=== PATIENT | male | born 1985 | race Caucasian/White ===

== ENCOUNTER 2023-02-05 21:18 | Emergency (ER) | payer OTHER, SELFPAY ==
[2023-02-05 21:21] VITALS: BP 193/96; PULSE 106; RESP 22; TEMP 36.2; O2SAT 98
[2023-02-05 22:06] VITALS: RESP 17; O2SAT 98; BMI 34.0
[2023-02-05] MEDS: Ketorolac 60 MG/2 ML Vial IM (22:23)
--- NOTE | 2023-02-05 22:27 | EX.ED.DYSGE1 ---
HPI History of Present Illness Chief Complaint: Dental Informant: patient Narrative Narrative: Of [id number] male presenting to the emergency room with dental pain. Patient states that for the past several months he has had dental decay right second molar and right upper second molar. He states he has been trying to save money to go see the dentist but that is take that money to repair his car. He then informs me that he actually has dental insurance through his work but he cannot find his card and he does not know how to go about calling the dentist to see if he can see them. I did mention to the patient that he can go to his human resources and get the phone number for [employer] to get a replacement card he states that he just has not had the time. I did inform him that he can call dentist and see if they take [employer] and schedule appointment that way but he does work third shift and sleeps during the day and by the time he is awake most places are closed. PFSH PFSH Home Medications amoxicillin 500 mg tablet 500 mg PO TID #30 tabs 02/05/23 [Rx Last Taken Unknown] hydrocodone-acetaminophen 5-325mg 5mg-325mg 1 tab PO Q6H PRN PRN Pain 3 days #12 TABLETS 02/05/23 [Rx Last Taken Unknown] Allergy/AdvReac Type Severity Reaction Status Date / Time No Known Allergies Allergy Verified 02/05/23 21:21 Social History (Updated 02/05/23 @ 22:[address] Paramjit Rowland, DO) Smoking Status: Current every day smoker tobacco type: cigarettes substance use type: does not use ROS ROS ED Constitutional Constitutional ED: Denies chills or weight loss Eyes Eyes: Denies blurry vision, change in vision or diplopia ENT ENT ED: Reports other Details: Dental pain ; Denies ear pain, rhinorrhea or sore throat Cardiovascular Cardiovascular: Denies chest pain, orthopnea, palpitations or racing heartbeat Respiratory/Chest Respiratory/Chest: Denies cough, dyspnea or orthopnea Gastrointestinal Gastrointestinal: Denies abdominal pain, diarrhea, nausea or vomiting Genitourinary Genitourinary ED: Denies dysuria, hematuria or urinary frequency Musculoskeletal Musculoskeletal: Denies arthralgias or myalgias Integumentary Denies abscess or rash Neurologic Neurologic: Denies headache(s) or weakness Psychiatric Psychiatric: Denies anxiety, depression, suicidal ideation or suicidal thoughts Endocrine Endocrinology: Denies polydipsia, polyphagia or polyuria Allergic/Immunologic Allergic/Immunologic ED: Denies mouth swelling, tongue swelling or urticaria EXAM Physical Exam Const Vital Signs: 02/05/23 21:21 02/05/23 22:06 Temperature 97.2 F L Temperature Source Temporal Pulse Rate 106 H Respiratory Rate 22 H 17 Blood Pressure 193/96 H Blood Pressure Mean 128 Pulse Ox 98 98 Oxygen Delivery Method Room Air Positive well nourished and well developed General Appearance ED: well developed HEENT Reports normocephalic, head/scalp atraumatic and moist mucous membranes HEENT Narrative: There is focal decay with loss of the enamel laterally of the right lower second molar and right upper sacral border. There is focal decay forming along the gumline of the first right lower molar. There is no mandibular or maxillary facial swelling. No overt erythema. No trismus. Floor the mouth is soft. Tenderness on tooth percussion Eyes PERRL and EOMs intact bilaterally Neck no lymphadenopathy, supple and no JVD Resp normal respiratory effort and clear to auscultation bilaterally Cardio regular rate, regular rhythm and no murmurs GI normal to inspection, nondistended, normoactive bowel sounds and non-tender Palpation: soft Back/Spine no CVA tenderness and normal ROM Extremity normal to inspection General Extremety ED: Negative for edema General Extremity: Negative for edema Neuro oriented x3 and CN's II-XII intact bilaterally Sensorium / Orientation: alert Motor Exam: strength 5/5 throughout Psych mental status grossly normal Mood & Affect: Negative for depressed or tearful Skin no rashes or lesions noted and no wounds MDM MDM MDM Narrative Medical decision making narrative: Patient was given a dose of Toradol here in the department for pain so that he can drive home. I will write a prescription for Bellerose as well as amoxicillin. He is instructed on Motrin use. He is instructed on dental follow-up. Discharge Plan Triage Chief Complaint: Dental ED Provider: Paramjit Rowland Dx/Rx/DC Orders Clinical Impression: Dental caries, Pain, dental Instructions: ED Dental Cavity Prescriptions: New hydrocodone-acetaminophen [hydrocodone-acetaminophen] 5-325 mg tablet 1 tab PO Q6H PRN PRN (Reason: Pain) 3 Days Qty: 12 0RF amoxicillin 500 mg tablet 500 mg PO TID Qty: 30 0RF Primary Care Provider: Care Physician,No [facility] - Activity Restrictions/Additional Instructions: Please follow-up with dentistry as soon as possible Disposition Disposition: Home, Self Care
== END 2023-02-05 22:55 | disposition home or self-care (01) ==
PROVIDERS: Emergency Provider Emergency Medicine; Visit Provider Emergency Medicine
DX: K08.89 Other specified disorders of teeth and supporting structures (principal); F17.210 Nicotine dependence, cigarettes, uncomplicated; K02.9 Dental caries, unspecified
CPT/HCPCS: 96372; 99282